=== PATIENT | male | born 1965 ===

== ENCOUNTER 2017-12-18 06:22 | Day surgery (SDC) | payer BC ==
[2017-12-16 10:41] VITALS: BMI 26.6
[2017-12-18] MEDS ORDERED: Lidocaine 4% (Laryng-O-Jet) Kit MM ONE (08:13)
[2017-12-18] MEDS ORDERED: Midazolam 2 MG/2 ML VIAL ONE ×3 (08:40→08:53)
[2017-12-18] MEDS ORDERED: Lidocaine 2% PF (10 ml) Amp ONE (08:45)
[2017-12-18] MEDS ORDERED: Verapamil 2 ML ONE (08:47)
[2017-12-18] MEDS ORDERED: Nitroglycerin 50mg in D5W 50 MG/250 ML BOTTLE IV ONE (08:48)
[2017-12-18] MEDS ORDERED: Perflutren Lipid Microsphere 1.5 ML SUS IV ONE (08:52)
[2017-12-18] MEDS ORDERED: Iodixanol 320 MG/ML 100 ML BOTTLE IV ONE (10:04)
[2017-12-18 10:58] LABS: ARTERIAL BLOOD GAS HCO3 19.7 mmol/L (21-28); ARTERIAL BLOOD GAS PCO2 32 mm/Hg (35-45); ARTERIAL BLOOD GAS PH 7.35 (7.35-7.45); ARTERIAL BLOOD GAS PO2 171 mm/Hg (80-100)
[2017-12-18 10:59] LABS: ARTERIAL BLOOD GAS O2 SAT 99.7 % (95-98); ARTERIAL BLOOD GAS TCO2 18.7 mmol/L (22-28)
[2017-12-18 11:02] LABS: VENOUS BLOOD GAS BASE EXCESS -7.7 mmol/L (0.0-2.0); VENOUS BLOOD GAS PCO2 41 mmHg (40-60); VENOUS BLOOD GAS PO2 37 mm/Hg (30-55); VENOUS BLOOD PH 7.27 (7.32-7.43)
[2017-12-18 11:05] LABS: VENOUS BLOOD GAS BASE EXCESS -6.3 mmol/L (0.0-2.0); VENOUS BLOOD GAS PCO2 40 mmHg (40-60); VENOUS BLOOD GAS PO2 36 mm/Hg (30-55)
[2017-12-18 11:07] LABS: VENOUS BLOOD GAS BASE EXCESS -7.1 mmol/L (0.0-2.0); VENOUS BLOOD GAS PCO2 41 mmHg (40-60); VENOUS BLOOD GAS PO2 36 mm/Hg (30-55); VENOUS BLOOD PH 7.28 (7.32-7.43)
--- NOTE | 2017-12-19 03:08 | CARDCATH ---
PROCEDURE DATE: 12/18/2017 INDICATIONS: Mr. Dye is a 52-year-old male, referred by Dr. Pawan Braun for evaluation of new onset CHF and recurrent heart failure hospitalizations. He was having episodes of severe shortness of breath with minimal activity, accompanied with substernal chest pain. Therefore, was brought to the [facility] lab[facility] for further evaluation and treatment. 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 He was also noted to have severe mitral regurgitation and severe tricuspid regurgitation and therefore, was brought to the [facility] for evaluation of possible preoperative evaluation for his valve surgeries. PROCEDURE PERFORMED: Complete heart catheterization with selective left and right coronary angiogram, left ventriculogram, 6-Ukrainian right femoral arterial access, 6-Ukrainian right femoral venous access, 6-Ukrainian right radial arterial access. ANGIOGRAPHIC FINDINGS: Left main is large sized vessel, bifurcates into the left anterior descending and left circumflex coronary artery. Left main free of any obstructive disease. LAD is a large sized vessel, it gives off two medium-sized diagonal branches, proximal, mid, and distal LAD 0% stenosis. Diagonal is free of any obstructive disease. The left circumflex runs in the AV groove, gives off a medium-sized obtuse marginal branch free of any obstructive disease. RCA is a large -sized vessel, codominant circulation free of any obstructive disease. Left ventricular ejection fraction is 15% with severe global LV systolic dysfunction. Right heart hemodynamics shows RA mean pressures with 19 mmHg, RV 76/12 with ATP of 22 mmHg, PA pressure 71/44 with a mean of 57, pulmonary capillary wedge pressure mean was 39 mmHg using the was calculated to be 3.61 with a cardiac index of 1.71. Saturations obtained RA 71, PA 68.7 with SV of 99. IMPRESSION: Severe nonischemic dilated cardiomyopathy, elevated filling pressures, normal coronaries. RECOMMENDATIONS: The patient is to undergo evaluation for infiltrative cardiomyopathy with cardiac MRI, it will be arranged in [facility]. The patient is to undergo ICD evaluation by EP service . The patient is to evaluated for possible cardiac transplantation. I spoke with Dr. Pawan Braun for further evaluation. At this point, we will aggressively titrate his medication and add RASS modulators. Jeff Peterson MD
--- NOTE | 2017-12-19 04:35 | CON ---
DATE: 12/18/2017 CONSULT SERVICE: Clinical cardiac electrophysiology. PHYSICIAN PERFORMING CONSULT: Antelmo Bender MD PHYSICIAN REQUESTING CONSULT: Jeff Peterson MD REASON FOR CONSULTATION: Cardiomyopathy; persistent atrial fibrillation. HISTORY OF PRESENT ILLNESS: Mr. Joseluis Dye is a very pleasant 52-year-old male with a history of recently diagnosed congestive heart failure and nonischemic cardiomyopathy (cardiac catheterization performed today) and atrial fibrillation (presumed to be paroxysmal) who presented to [facility] with some congestive heart failure, and underwent cardiac catheterization with a planned discharge today. Over the course of the last 1 to 2 months, the patient has experienced profound dyspnea on exertion, shortness of breath. He was initially seen at [facility], I believe, at the end of October or early November. At that time, I believe an echocardiogram was performed which was incorrectly read as normal LV ejection fraction but the patient had severe dysfunction, per Dr. Jeff Peterson. The patient has been followed by Dr. Peterson and Dr. Braun in the outpatient setting. He has been started on medications at that time, including AV shea blocking agents and BRENNAN inhibitors. The patient has had episodes of sudden shortness of breath but denies lightheadedness, dizziness, or any lisa syncope. Denies any palpitations. His EKG from 2 weeks ago was noted and demonstrates atrial fibrillation with antegrade conduction and a left bundle branch block of about 140 msec. His echocardiogram reported by Dr. Peterson demonstrates some left ventricular hypertrophy. He also suffers from hypertension. SOCIAL HISTORY: The patient does not smoke, does not drink alcohol. No drugs. He works in a [employer]. FAMILY HISTORY: In terms of family history, his father had cardiomyopathy but this was diagnosed much later in his life. It is unclear if he had concomitant coronary disease. No other history of sudden cardiac arrest or ICD insertion. REVIEW OF SYSTEMS: A comprehensive 10-point review of system was performed, notable for what is seen above. Family history and social history reviewed and seen above. CURRENT MEDICATIONS: Include metoprolol XL 100 mg once daily, losartan 50 mg once daily, Eliquis 5 mg twice daily, Lasix 40 mg once daily. PHYSICAL EXAMINATION: VITAL SIGNS: The patient's blood pressure is 165/92, heart rate of 74, respiratory rate of 13. GENERAL: The patient is alert, oriented, and conversant. NECK: Supple. PULMONARY: Lungs are clear to auscultation. GASTROINTESTINAL: Abdomen is soft. EXTREMITIES: No edema. CARDIOVASCULAR: Regular S1, S2. Occasional extrasystole. NEUROLOGIC: Grossly intact. PSYCHIATRIC: Normal affect. SKIN: No rashes. IMPRESSION: Mr. Dye is presenting with "new" diagnosis of nonischemic cardiomyopathy as his cath today has revealed, he has described his left ventricular function on his echocardiogram although I have not reviewed this personally. It is unclear as to what his underlying etiology of cardiomyopathy and heart failure is at the current time. Perhaps, he has had hypertension for extended period of time and now this hypertension. Alternatively, an infiltrative disorder can and should be considered. The workup for this may include a cardiac MRI and this would be under the guidance and care of both, Dr. Peterson and Dr. Pawan Braun. In terms of his cardiomyopathy and from the electrophysiology perspective, I described the details to the patient as well as the patient's sister in Thai regarding his risk of ventricular arrhythmia and sudden cardiac arrest. Certainly, we should assess his response to therapy for at least 3 months from the initial diagnosis of his cardiomyopathy and treatment with optimal medical therapy. At that point, we should repeat left ventricular ejection fraction to assess, and if he continues to have severe left ventricular dysfunction, he may be an excellent candidate for biventricular ICD. Additionally, it is unclear how much of this might be atrial fibrillation related, but per description, it sounds that he has been in sinus for most of the time. In the interim, I have discussed with him the possibility of a LifeVest wearable defibrillator if he has nonischemic dilated cardiomyopathy. He understands and is willing to proceed with this option. Additionally, as an outpatient, we will discuss the benefit of cardioversion to see if continuation of anabaptism of sinus rhythm helps him from heart failure perspective as well as may be from a cardiomyopathy perspective. He will see me in my office at [facility] after he sees Dr. Braun and Dr. Peterson. Thank you very much for allowing me to participate in the care of this patient. Antelmo Bender MD
[2017-12-19 12:03] VITALS: RESP 16; O2SAT 100
--- NOTE | 2017-12-19 16:15 | CARD ---
APPROVED REPORT Date of service: 12/18/2017 EXAM: Transesophageal echocardiogram with color flow Doppler with contrast INDICATION Mitral Valve Disease Congestive Heart Failure Mitral Valve E/A ratio0.0 TDI E/Lateral E'0.0E/Medial E'0.0 Reason For Test : Rule out Intracardiac Thrombus. PROCEDURE After obtaining informed consent, patient underwent transesophageal echo in the [employer] [facility]. Type of Sedation : Conscious Sedation Sedation was administered by MD. Sedation was achieved with versed , fentantyl mg intravenously. Transesophageal probe was inserted and advanced into esophagus without difficulty. Echo enhancement indication: R/O Thrombus. Echo enhancement agent administered: Definity The WENDY was performed without complications. Throughout the procedure, the blood pressure, pulse oximetry, cardiac rhythm, and rate were monitored. The patient tolerated the procedure without adverse effects. Recovery from conscious sedation was uneventful and vital signs were stable. LEFT VENTRICLE The left ventricle is normal size. There is mild to moderate concentric left ventricular hypertrophy. Left ventricle systolic function is severely impaired. The Ejection Fraction is 15-20%. There is global hypokinesis of the left ventricle. Tissue Doppler imaging reveals abnormal left ventricular diastolic dysfunction. Transmitral Doppler flow pattern is Grade II-pseudonormal filling dynamics. No left ventricle thrombus noted on this study. There is no ventricular septal defect visualized. There is no left ventricular aneurysm. There is no mass noted in the left ventricle. RIGHT VENTRICLE The right ventricle is grossly normal size. There is normal right ventricular wall thickness. The right ventricular systolic function is normal. AORTIC VALVE The aortic valve is normal in structure. There is mild aortic regurgitation. There is no aortic valvular stenosis. There is no aortic valvular vegetation. MITRAL VALVE The mitral valve is normal in structure. There is no evidence of mitral valve prolapse. There is no mitral valve stenosis. Mitral regurgitation is severe. TRICUSPID VALVE The tricuspid valve is normal in structure. There is moderate tricuspid regurgitation. There is no tricuspid valve prolapse or vegetation. There is no tricuspid valve stenosis. PULMONIC VALVE The pulmonary valve is normal in structure. There is mild to moderate pulmonic valvular regurgitation. There is no pulmonic valvular stenosis. GREAT VESSELS The aortic root is normal in size. The IVC is normal in size and collapses >50% with inspiration. PERICARDIAL EFFUSION There is no pericardial effusion. There is no pleural effusion. <Conclusion> Mitral regurgitation is severe. Left ventricle systolic function is severely impaired. The Ejection Fraction is 15-20%. Tissue Doppler imaging reveals abnormal left ventricular diastolic dysfunction. Transmitral Doppler flow pattern is Grade II-pseudonormal filling dynamics. Mitral regurgitation is severe. There is moderate tricuspid regurgitation.
== END 2017-12-18 16:30 | disposition home or self-care (01) ==
LOC: C.CATHLAB 06:22
PROVIDERS: ATTEND Internal Medicine Interventional Cardiology
DX: R07.2 Precordial pain (principal); I42.9 Cardiomyopathy, unspecified; I50.9 Heart failure, unspecified; I48.1 Persistent atrial fibrillation; I08.1 Rheumatic disorders of both mitral and tricuspid valves; I11.0 Hypertensive heart disease with heart failure; I34.0 Nonrheumatic mitral (valve) insufficiency; I44.7 Left bundle-branch block, unspecified
CPT/HCPCS: 82803; 93460; 94770; C1714; C1760; C1769; C1887; C1894; C8925; J1644; J2001; J2250; J3010; Q9967